=== PATIENT | female | born 1965 | race Caucasian/White ===

== ENCOUNTER 2018-04-06 10:18 | Emergency (ER) | payer OTHER ==
[2018-04-06 10:30] VITALS: BP 151/92
--- NOTE | 2018-04-06 10:33 | UC ---
Laceration HPI - HPI Summary HPI Summary: 52 yo female presents with scalp laceration. She tells me that last night she, admittedly, drank too much and went to bed. Woke up about an hour or two later around 0030 to use the bathroom and was drunk - per pt. Wobbled around and lost her footing - fell into a nearby wooden dresser hitting the back/side of her head. Says she didn't feel much pain and didn't lose consciousness. Went back to bed and slept until this morning. This morning she woke up and had her look at her wound - noticed a large laceration prompting her visit to . Currently she denies headache, dizziness, vision changes, weakness, or pain. When asked about her alcohol use she admits that she thinks she drinks too much on occasion and has been trying to cut back. Her father is an alcoholic and this worries her and her . She admits to being under a lot of stress the last few years and has noticed her drinking (mostly wine) increasing. She tells me that this is the first time she has had a significant injury due to drinking. - History Of Current Complaint Chief Complaint: UCHeadInjury Stated Complaint: HEAD LAC Time Seen by Provider: 04/06/18 10:33 Hx Obtained From: Patient Laceration Location: Head Mechanism Of Injury: Blunt Trauma Onset/Duration: Sudden Onset Severity: Mild Pain Intensity: 2 Pain Scale Used: 0-10 Numeric - Allergies/Home Medications Allergies/Adverse Reactions: Allergies Allergy/AdvReac Type Severity Reaction Status Date / Time No Known Allergies Allergy Verified 04/06/18 10:30 Home Medications: Home Medications NK [No Home Medications Reported] 04/06/18 [History Confirmed 04/06/18] PMH/Surg Hx/FS Hx/Imm Hx - Additional Past Medical History Additional PMH: None - Surgical History Surgical History: Yes Surgery Procedure, Year, and Place: BREAST CANCER,oopharectomy - Family History Known Family History: Positive: Other - Alcoholism - Social History Occupation: Employed Full-time Lives: With Family Alcohol Use: Daily Substance Use Type: None Smoking Status (MU): Never Smoked Tobacco Review of Systems All Other Systems Reviewed And Are Negative: Yes Constitutional: Positive: Negative Skin: Positive: Other - Scalp laceration Respiratory: Positive: Negative Cardiovascular: Positive: Negative Gastrointestinal: Positive: Negative Neurovascular: Positive: Negative Musculoskeletal: Positive: Negative Neurological: Positive: Negative Psychological: Positive: Negative Physical Exam - Summary Physical Exam Summary: GENERAL: NAD. WDWN. No pain distress. SKIN: 3.0cm laceration to the left occipital scalp through the subcutaneous tissue. HEENT: Head: AT/NC. No raccoon eyes or battles sign. Eyes: PERRLA. EOM intact. NECK: Supple. Nontender. FROM CHEST: CTAB. No r/r/w. No accessory muscle use. Breathing comfortably and in no distress. CV: RRR. Without m/r/g. Pulses intact. Brisk cap refill. MSK: FROM in B/L UEs and LEs with symmetric strength. NEURO: A&Ox3. 3 word recall, remote, recent memory, ability to follow 2-step directions, and attention intact. CN: II: Peripheral avalos intact. Vision normal. III, IV, : EOMI. No nystagmus. PERRLA. V: Sensations intact and symmetric. Opens mouth and clenches teeth. VII: No facial asymmetry. Forehead wrinkles. Grins, shuts eyes, frowns, puffs cheeks. VIII: Hearing intact to finger rub. IX, X: Swallows and coughs. Uvula midline. XI: Shrugs shoulders. Turns head against resistance. XII: No tongue deviation Tnkwpy-[id number] are intact. Gait with normal base. Romberg: maintains balance, no pronator drift. Normal speech. No facial drooping. PSYCH: Age appropriate behavior. Triage Information Reviewed: Yes Vital Signs: Initial Vital Signs Temp 98.5 F 04/06/18 10:25 Pulse 64 04/06/18 10:25 Resp 16 04/06/18 10:25 BP 151/92 04/06/18 10:25 Pulse Ox 99 04/06/18 10:25 Vital Signs Reviewed: Yes Laceration Repair - Laceration Repair 1 Description: Linear Laceration Size After Repair: Length (cm) - 3.0 Modified For Repair: No Type Injection: Local Anesthesia Used: 2.0% Lido Cleansing Completed Via Routine Prep: Yes Closure Material: Pierre - #8 Closure Method: Single Layer Laceration Course/Dx - Course/Dx Course Of Treatment: CT: IMPRESSION: 1. CT findings are consistent with laceration overlying the left occiput without. underlying calvarial fracture or acute intracranial hemorrhage. 2. Paranasal sinus mucosal disease. The procedure was explained to the pt and all questions were answered. A time out was performed, witnessed, and signed. The area was cleansed with sterile saline. 1mL of 2% lidocaine without epi was administered and good anesthetization was achieved. EIGHT pierre were placed. Pt tolerated procedure well. I discussed the pt's alcohol intake with her and her . She scored 4 /4 on CAGE questions and is interested in possible counseling/therapy. I have provided her with a list of three local therapists specializing in alcohol addiction and treatments. Also recommended to schedule a f/u in 10 days with her PCP to further discuss this, as well as to get her pierre removed. If she develops a headache, dizziness, vision changes, vomiting, or new symptoms to go to the ED. She voiced understanding. - Diagnosis Provider Diagnosis: Head injury, Scalp laceration, Alcohol abuse Discharge - Sign-Out/Discharge Documenting (check all that apply): Patient Departure All imaging exams completed and their final reports reviewed: Yes - Discharge Plan Condition: Fair Disposition: HOME Patient Education Materials: [employer] (ED) Referrals: Jennifer Joyner MD [Primary Care Provider] - 1 Week Additional Instructions: If you develop a fever, shortness of breath, chest pain, new or worsening symptoms - please call your PCP or go to the ED. Your blood pressure was high at todays visit. Please see your primary provider within 4 weeks for recheck and re-evaluation. If you develop a headache, dizziness, vomiting, or vision changes - please call 911 or go to the ER immediately Please see your Primary Doctor in 10 days to have your pierre removed and for a recheck - Billing Disposition and Condition Condition: FAIR Disposition: Home
[2018-04-06] MEDS ORDERED: Lidocaine 2% PF * 5 ML VIAL INJ ONE (10:42)
== END 2018-04-06 12:24 | disposition home or self-care (01) ==
LOC: UCEAST 10:18
DX: S01.01XA Laceration without foreign body of scalp, initial encounter (principal); S09.90XA Unspecified injury of head, initial encounter; F10.10 Alcohol abuse, uncomplicated; W01.190A Fall on same level from slipping, tripping and stumbling with subsequent striking against furniture, initial encounter; Y92.9 Unspecified place or not applicable
CPT/HCPCS: 12002; 12031; 70450; 99211; G0463